=== PATIENT | male | born 1960 | race Caucasian/White ===

== ENCOUNTER 2017-02-24 10:50 | Outpatient (CLI) | payer OTHER ==
--- NOTE | 2017-02-24 15:01 | MRI Report ---
EXAM: MRI BRAIN AND ORBITS, WITHOUT CONTRAST EXAM DATE: 02/24/2017 12:15 PM. CLINICAL HISTORY: Disturbance, visual NOS, dizziness. Symptoms usually worse in the left. History of left-sided tonsillar cancer with chemoradiation in 2009. COMPARISON: None. TECHNIQUE: Multiplanar, multisequence T1-weighted and fluid-sensitive MR sequences of the brain were performed. Sequences optimized for routine and orbits evaluation. Other: None. IV Contrast: None. FINDINGS: Brain Volume: Normal for age. Parenchyma/Dura: No masses, infarcts, or hemorrhage. There are a few scattered punctate foci of FLAIR bright signal seen in the white matter of the cerebral hemispheres. This is not an unexpected findin g in a patient of age 56 years. No cortical signal abnormality. Ventricles/Cisterns: Normal. No hydrocephalus. Orbits: The globes, optic nerve sheath complex, extraocular muscles, and orbital fat are unremarkable . Sella turcica: The pituitary gland, cavernous sinuses, suprasellar cistern, and optic chiasm are unre markable. IAC: The internal auditory canals and cerebellopontine angle cisterns are symmetric and unremarkable. Vasculature: Normal signal flow void is seen in the major arterial structures at the skull base. Sinuses: Mild mucosal thickening is seen inferiorly in the right maxillary antrum. The mastoid air ce lls are clear. Bones: Normal. Other: None. IMPRESSION: 1. Negative noncontrast MRI of the brain. No acute abnormality. 2. Negative MRI of the orbits. 3. Mucosal thickening inferiorly in the right maxillary antrum. [facility] Referring Provider Line: [phone] SITE ID: [id number]
== END 2017-02-24 10:51 | disposition home or self-care (01) ==
LOC: DI 10:50
PROVIDERS: ATTEND Family Medicine
DX: H53.9 Unspecified visual disturbance (principal); R42 Dizziness and giddiness; C06.9 Malignant neoplasm of mouth, unspecified
CPT/HCPCS: 70551

== ENCOUNTER 2017-07-13 08:42 | Outpatient (CLI) | payer OTHER ==
[~2017-07-13 08:42] MED LIST: GADOBUTROL 10 MMOL/10 ML VIAL ONE
[2017-07-13] MEDS ORDERED: GADOBUTROL 10 MMOL/10 ML VIAL IVP ONE (09:31)
--- NOTE | 2017-07-13 10:39 | MRI Preliminary Report ---
Exam: MRI BRAIN W/WO Impression: 1. Normal MRI examination of the internal artery canals. In particular, no evidence of a vestibular s chwannoma. 2. A very mild amount of white matter disease is again identified in the supratentorial brain, unchan ged when compared to previous study 02/24/2017. 3. No new or acute intracranial pathology is demonstrated. SITE ID: [id number]
--- NOTE | 2017-07-13 11:58 | MRI Report ---
MRI BRAIN WITHOUT AND WITH CONTRAST EXAM DATE: 07/13/2017. INDICATION: 56-year-old male with history of oral cavity squamous cell carcinoma 7 years ago. The pat ient presents with three-week history of left-sided tinnitus, hearing loss and dizziness. Please asse ss. COMPARISON: 02/24/2017. TECHNIQUE: Imaging of the brain and internal auditory canals has been performed. The following sequences were ob tained: 1. T1 sagittal. 2. Axial T1 3-D, FLAIR and DWI. 3. 9 cc IV Gadavist. T1 3-D axial. Internal Auditory Canals: 1. Thin slice coronal fat-saturated T2. 2. Thin slice high-resolution, 3-D balanced FFE axial. 3. Thin slice postcontrast T1 fat-saturated axial. FINDINGS: INTERNAL AUDITORY CANALS On the balanced FFE axial sequence the vestibulocochlear nerve bundles are well seen in the CP angle cisterns and internal auditory canals bilaterally. No focal mass lesion is demonstrated. There appear to be normal fluid-filled spaces in the distribution of the cochlea, vestibules and semicircular can als bilaterally. The bone overlying the superior semicircular canals is very thin; however, no casper dehiscence of either superior semicircular canal is demonstrated (see series 602 and 603). No abnorma l enlargement of either endolymphatic duct/sac is demonstrated. Postcontrast sequence shows no evidence of an enhancing CP angle or internal auditory canal mass lesi on. In addition, no abnormal enhancement is seen in either labyrinth. BRAIN Ventricular size is normal and stable. A mild amount of white matter disease is again identified in t he supratentorial brain, essentially unchanged. Signal intensity of cortex and white matter is otherw ise normal. In particular, no focal brainstem lesion is demonstrated. There appear to be flow voids for the main intracranial arteries. No abnormal diffusion restriction i s demonstrated. No enhancing space-occupying mass lesion is identified. No pathologic meningeal or cranial nerve enha ncement is demonstrated. There appears to be normal intravascular contrast enhancement in the dural v enous sinuses and deep venous structures. This effectively excludes the possibility of venous thrombo sis. Marrow signal intensity in the regional skeletal structures is unremarkable. Very limited evaluation of the orbits reveals no gross pathology. The paranasal sinuses are essential ly clear. No mastoid or middle ear effusion is demonstrated. IMPRESSION: 1. Normal MRI examination of the internal auditory canals. In particular, no evidence of a vestibular schwannoma. 2. A very mild amount of white matter disease is again identified in the supratentorial brain, unchan ged when compared to previous study 02/24/2017. 3. No new or acute intracranial pathology is demonstrated. A preliminary report for this examination was called to Mable Forde PA-C, on 07/13/2017 at 10:35 a.m., as requested. Referring Provider Line: [phone] SITE ID: [id number]
== END 2017-07-13 08:43 | disposition home or self-care (01) ==
LOC: DI 08:42
PROVIDERS: ATTEND Physician Assistant Medical
DX: R90.82 White matter disease, unspecified (principal); H93.19 Tinnitus, unspecified ear; H91.90 Unspecified hearing loss, unspecified ear; R42 Dizziness and giddiness; C06.9 Malignant neoplasm of mouth, unspecified
CPT/HCPCS: 70553; A9585

== ENCOUNTER 2018-06-02 10:31 | Outpatient (CLI) | payer OTHER ==
[2018-06-02 10:58] LABS: BASOPHILS % (AUTO) 0.4 %; EOSINOPHILS # (AUTO) 0.1 10^3/uL (0.0-0.7); EOSINOPHILS % (AUTO) 1.8 %; HGB - HEMOGLOBIN 15.5 g/dL (14.0-18.0); LYMPHOCYTES # (AUTO) 1.8 10^3/uL (1.5-3.5); LYMPHOCYTES % (AUTO) 30.2 %; MEAN CORPUSCULAR HEMOGLOBIN 30.9 pg (27.0-31.0); MEAN CORPUSCULAR HGB CONC 34.3 g/dL (32.0-36.0); MEAN CORPUSCULAR VOLUME 90.2 fL (80.0-94.0); MEAN PLATELET VOLUME 7.9 fL (7.4-11.4); MONOCYTES # (AUTO) 0.4 10^3/uL (0.0-1.0); MONOCYTES % (AUTO) 7.5 %; NEUTROPHILS # (AUTO) 3.5 10^3/uL (1.5-6.6); NEUTROPHILS % (AUTO) 60.1 %; PLT - PLATELET COUNT 278 10^3/uL (130-450); RED CELL DISTRIBUTION WIDTH 12.9 % (12.0-15.0); WHITE BLOOD COUNT 5.8 x10^3/uL (4.8-10.8)
[2018-06-02 10:59] LABS: ALBUMIN 4.6 g/dL (3.2-5.5); ALBUMIN/GLOBULIN RATIO 1.5 (1.0-2.2); CALCIUM 9.4 mg/dL (8.5-10.3); TOTAL PROTEIN 7.6 g/dL (6.7-8.2)
== END 2018-06-02 10:32 | disposition home or self-care (01) ==
LOC: LAB 10:31
PROVIDERS: ATTEND Internal Medicine Gastroenterology
DX: I10 Essential (primary) hypertension (principal)
CPT/HCPCS: 36415; 80053; 85025

== ENCOUNTER 2018-06-02 10:47 | Outpatient (CLI) | payer OTHER | END 2018-06-02 10:48 | disposition home or self-care (01) | LOC: RT 10:47 | PROVIDERS: ATTEND Internal Medicine Gastroenterology | DX: I10 Essential (primary) hypertension (principal) | CPT/HCPCS: 36415; 80053; 85025; 93005 ==

== ENCOUNTER 2018-06-12 07:24 | Day surgery (SDC) | payer OTHER ==
[2018-06-12] MEDS ORDERED: ceFAZolin 2 GM/50 ML 2 GM/50 ML BAG IV ONE (07:36)
[2018-06-12] MEDS ORDERED: LACTATED RINGERS 1,000 ML IV ONE ×2 (08:05→12:06)
--- NOTE | 2018-06-12 08:20 | ANESTHESIA ---
Pre-Anesthesia VS, & Labs - Diagnosis Ventral incisional hernia - Procedure Ventral incisional hernia repair Vital Signs: Temp Pulse Resp BP Pulse Ox 36.4 C L 16 136/78 H 100 06/12/18 07:45 06/12/18 07:45 06/12/18 07:45 06/12/18 07:45 Height 5 ft 7 in Weight (kg) 89 kg Body Mass Index 34.1 - Lab Results Lab results reviewed: Yes Anes History & Medical History - Anesthetic History Anesthesia Complications: reports: No previous complications Family history of Anesthesia Complications: Denies Family history of Malignant Hyperthermia: Denies - Medical History Cardiovascular: reports: None Pulmonary: reports: None Gastrointestinal: reports: None Urinary: reports: None Neuro: reports: None Musculoskeletal: reports: None Endocrine/Autoimmune: reports: None Blood Disorders: reports: None Skin: reports: Other Smoking Status: Former smoker Psychosocial: reports: No issues indicated - Surgical History Eyes Ears Nose Throat (EENT): Other (Lefy radical neck) Neurologic: Radical neck Orthopedic: Other Exam General: Alert Dental: WNL Mouth Opening: Greater than 4 Fingerbreadths Neck Mobility: Normal Mallampati classification: I Thyromental Distance: greater than 6 cm Respiratory: Lungs clear Cardiovascular: Regular rate Neurological: Normal speech Mental/Cognitive Status: Alert/Oriented X3 Cognitive Status: Within normal limits Plan Anesthesia Type: MAC Consent for Procedure(s) Verified and Reviewed: Yes Code Status: Attempt Resuscitation ASA classification: 2-Mild systemic disease Is this case an emergency?: No
[2018-06-12] MEDS: LIDOCAINE MPF 1%-EPI 1:200000 30 ML VIAL ONE ×2 (10:52→10:58)
[2018-06-12] MEDS: BUPIVACAINE 0.5% PF 30 ML VIAL ONE ×2 (10:52→10:58)
[2018-06-12] MEDS ORDERED: ceFAZolin 1 GM VIAL IR ONE (11:08)
[2018-06-12] MEDS ORDERED: fentaNYL 100 MCG/2 ML VIAL IVP ONE (11:55)
[2018-06-12] MEDS ORDERED: MIDAZOLAM 2 MG/2 ML VIAL IVP ONE (11:55)
[2018-06-12] MEDS ORDERED: KETOROLAC 30 MG/ML VIAL IVP ONE (11:55)
[2018-06-12] MEDS ORDERED: PROPOFOL 200 MG/20 ML VIAL IVP ONE (11:55)
[2018-06-12] MEDS ORDERED: oxyCOD/ACETAMIN 5 MG/325 MG TABLET PO ONE (12:53)
[2018-06-12 13:32] VITALS: BP 144/80
--- NOTE | 2018-06-12 23:45 | OPERATIVE REPORT ---
DATE OF SERVICE: 06/12/2018 Physician: Milton Church MD PREOPERATIVE DIAGNOSIS: Symptomatic incarcerated ventral incisional hernia. POSTOPERATIVE DIAGNOSIS: Symptomatic incarcerated ventral incisional hernia. PROCEDURE: Open repair of symptomatic incarcerated ventral incisional hernia with Ventralex soft tis abhi patch. ANESTHESIA: Local plus monitored anesthesia care by Monroe Ribeiro CRNA. SURGEON: Milton Church MD. ESTIMATED BLOOD LOSS: 5 mL. COMPLICATIONS: None. FINDINGS: A multi-fenestrated ventral incisional hernia was present in the upper midline measuring a pproximately 3-4 cm in greatest diameter and comprised of preperitoneal fat herniating through the mu ltiple fascial defects. There was no evidence of strangulation. A 6.4 cm Ventralex soft tissue patc h was used for the reconstruction, placed in a preperitoneal position. INDICATIONS: Patient is a 57-year-old gentleman with a history of an open gastrostomy tube placement procedure performed via a mini laparotomy in the epigastrium, approximately 8 years ago. Over the p ast several years, he has noted progressively enlarging bulge in the mid epigastrium. Examination re vealed a partially reducible ventral incisional hernia, and he was advised to undergo repair. TECHNIQUE: After informed consent, patient was taken to the operating room where he was sedated and monitored. Preoperative preparation included application of sequential calf compression boots, admin istration of 2 grams cefazolin intravenously within an hour of the incision. His abdomen was prepare d with iodoform solution, following which a field block was instituted using a 50:50 combination of 1 % lidocaine with epinephrine and 0.5% Marcaine plain; a total of 30 mL of the mixture was used. The abdomen was then re-prepared with ChloraPrep solution and draped in the usual sterile fashion. Travis brooks's previous upper midline incision was reopened for a total distance of approximately 4-5 cm. Hemo stasis was achieved with electrocautery. The incision was carried down through the subcutaneous tiss ue until the hernia sacs were identified. The fascial edges were mobilized circumferentially. Herni a contents were seen to be preperitoneal fat. The fascial bridges between the fenestrations were leelee ed to create a single common fascial defect of approximately 3-4 cm in length. The fascial edges wer e mobilized circumferentially, approximately 2-3 cm circumferentially ,creating a preperitoneal pocke t of sufficient size to allow placement of the 6.4 cm Ventralex patch without folding. After hemosta sis was assured, the wound was irrigated with antibiotic solution. The patch, which had been soaked in antibiotic solution, was placed in the preperitoneal position and with the straps holding it again st the anterior abdominal wall. The fascial edges were reapproximated transversely with interrupted 0 braided polyester sutures, the central sutures of which incorporated the straps to secure the mesh in place. Excess strap was excised and discarded. After fascial reapproximation occurred, overlying the mesh, the wound was again irrigated with antibi otic solution, following which wound closure was accomplished in layers using continuous 2-0 Vicryl t o reapproximate subcutaneous tissues and 4-0 Monocryl subcuticular skin closure, followed by Dermabon d. The procedure was terminated, and patient transferred out of the operating room in satisfactory c ondition. Sponge, needle counts were correct x2, and no drains were used. cc: Chris Kelley M.D. TD: 06/12/2018 12:10
== END 2018-06-12 07:25 | disposition home or self-care (01) ==
LOC: SDS 07:24
PROVIDERS: ATTEND Internal Medicine Gastroenterology
PROC: 0WQF0ZZ Repair Abdominal Wall, Open Approach (ICD-10-PCS; principal; 2018-06-12 08:45)
DX: K43.2 Incisional hernia without obstruction or gangrene (principal); I10 Essential (primary) hypertension; E78.5 Hyperlipidemia, unspecified; Z87.891 Personal history of nicotine dependence
CPT/HCPCS: 49560; A9270; C1781; J0690; J7120

== ENCOUNTER 2019-01-08 17:52 | Emergency (ER) | payer OTHER ==
[2019-01-08] MEDS ORDERED: TETANUS/DIPHTHERIA/PERTUSSIS 0.5 ML SYRINGE IM ONE (18:38)
--- NOTE | 2019-01-08 18:42 | ED Physician Documentation ---
PD HPI LOWER EXT INJURY - Stated complaint Stated Complaint: L KNEE LAC - Chief complaint Chief Complaint: Laceration - History obtained from History obtained from: Patient - History of Present Illness PD HPI LOW EXT INJURY LOCATION: Left, Knee Type of injury: Laceration (He was using a trimmer sorter at home and cut his left knee accidentally. He is not up-to-date on tetanus.) Review of Systems Constitutional: reports: Reviewed and negative Cardiac: reports: Reviewed and negative Respiratory: reports: Reviewed and negative PD PAST MEDICAL HISTORY - Past Medical History Past Medical History: Yes Cardiovascular: None Respiratory: None Neuro: None Endocrine/Autoimmune: None GI: None : None HEENT: None Psych: None Musculoskeletal: None Derm: Other Other Past Medical History: cancer of neck and tonsil in 2010 with chemo and radiation. cancer free in 2019. - Past Surgical History Past Surgical History: Yes Ortho: Other Neuro: Radical neck HEENT: Other - Present Medications Home Medications: Ambulatory Orders Medication Instructions Recorded Confirmed No Known Home Medications 01/08/19 01/08/19 - Allergies Allergies/Adverse Reactions: Allergies Allergy/AdvReac Type Severity Reaction Status Date / Time No Known Drug Allergies Allergy Verified 01/08/19 17:58 - Social History Does the pt smoke?: Yes Smoking Status: Former smoker Does the pt drink ETOH?: No Does the pt have substance abuse?: No - Immunizations Immunizations: TDAP >10years/unknown PD ED PE NORMAL - Vitals Vital signs reviewed: Yes - General General: Alert and oriented X 3, No acute distress - Extremities Extremities: Other (Stellate 3 cm laceration just superior to the left patella with intact patellar tendon strength.) - Neuro Neuro: Alert and oriented X 3, Normal speech Results - Vitals Vitals: Vital Signs - 24 hr 01/08/19 17:56 Temperature 36.8 C Heart Rate 73 Respiratory 20 Rate Blood Pressure 153/97 H O2 Saturation 98 Procedures - Laceration (location) L knee Length in cm: 2 Wound type: Stellate, Superficial, Into subcut fat Neurovascular status: Sensory intact, Motor intact, Vascular intact Anesthesia: Lidocaine 1% with epi Wound Preparation: Hibiclens, Irrigated copiously NS Skin layer closure: Nylon, Size #-0 - enter number (4-0), Sutures - enter # (5 with one dog-leg subq at a corner) Other: Tetanus booster given Complexity: Simple Departure - Departure Disposition: Home, Self Care Clinical Impression: Laceration Condition: Good Record reviewed to determine appropriate education?: Yes Instructions: ED Laceration Ext Sutr Stap Tape Comments: Watch for redness, swelling, drainage fever or increased pain Followup with your doctor in about 2 weeks for suture removal./
[2019-01-08] MEDS ORDERED: BACITRACIN OINT TOP ONE (19:25)
[2019-01-08] MEDS ORDERED: BACITRACIN OINT TOP STA (19:25)
[2019-01-08 19:27] VITALS: BP 146/66
== END 2019-01-08 19:27 | disposition home or self-care (01) ==
LOC: ED 17:52
DX: S81.012A Laceration without foreign body, left knee, initial encounter (principal); W29.3XXA Contact with powered garden and outdoor hand tools and machinery, initial encounter; Z87.891 Personal history of nicotine dependence
CPT/HCPCS: 12001; 90471; 90715; 99282; 99283; A9270

== ENCOUNTER 2019-02-12 12:03 | Emergency (ER) | payer OTHER ==
--- NOTE | 2019-02-12 12:25 | ED Physician Documentation ---
PD HPI FOCAL NEURO - Stated complaint Stated Complaint: DIZZY - Chief complaint Chief Complaint: Neuro - History obtained from History obtained from: Patient, Family () - History of Present Illness Timing - onset: Other (58-year-old gentleman who in the past has had mild recurrent vertigo that is fleeting. 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 For the last 2 days he has had disequilibrium that is both more severe and different in quality than his prior vertigo. It is not a spinning sensation. He just feels off balance. He did fall today but did not injure himself, this was because of this. He denies a headache or nausea. He has difficulty focusing on things and describes fluttering in his vision. He denies weakness, numbness, tingling in the extremities or face.) Review of Systems Ten Systems: 10 systems reviewed and negative Constitutional: denies: Fever, Chills Ears: denies: Loss of hearing, Ear pain, Drainage/discharge Nose: denies: Rhinorrhea / runny nose Throat: denies: Sore throat Cardiac: reports: Reviewed and negative Respiratory: reports: Reviewed and negative PD PAST MEDICAL HISTORY - Past Medical History Cardiovascular: None Respiratory: None Neuro: None Endocrine/Autoimmune: None GI: None : None HEENT: None Psych: None Musculoskeletal: None Derm: Other - Past Surgical History Past Surgical History: Yes Ortho: Other Neuro: Radical neck HEENT: Other - Present Medications Home Medications: Ambulatory Orders Medication Instructions Recorded Confirmed Meclizine HCl 25 mg PO Q6H PRN #20 tab.chew 02/12/19 - Allergies Allergies/Adverse Reactions: Allergies Allergy/AdvReac Type Severity Reaction Status Date / Time No Known Drug Allergies Allergy Verified 02/12/19 12:13 - Social History Does the pt smoke?: Yes Smoking Status: Former smoker Does the pt drink ETOH?: No Does the pt have substance abuse?: No - Family History Family history: reports: Non contributory - Immunizations Immunizations: TDAP >10years/unknown PD ED PE NORMAL - Vitals Vital signs reviewed: Yes - General General: Alert and oriented X 3, No acute distress - HEENT HEENT: PERRL, EOMI, Other (Very mild fast nystagmus on rightward gaze, the soft palate is deformed because of his prior surgery and he has surgical scars over the left neck.) - Neck Neck: Supple, no meningeal sign, No bony TTP - Cardiac Cardiac: RRR, No murmur - Respiratory Respiratory: No respiratory distress, Clear bilaterally - Abdomen Abdomen: Soft, Non tender - Back Back: No CVA TTP, No spinal TTP - Derm Derm: Normal color, Warm and dry - Neuro Neuro: Alert and oriented X 3, contracts director 2-12 intact, Other (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 Some ataxia on [id number] testing. This is on the left.) Eye Opening: Spontaneous Motor: Obeys Commands Verbal: Oriented GCS Score: 15 NIHSS - Time Time: 12:20 - Level of Consciousness Level of consciousness: (0) Alert, Keenly responsive LOC Questions: (0) Answers both Q's correct LOC Commands: (0) Performs both correctly - Gaze Best Gaze: (0) Normal - Visual Visual: (0) No loss - Facial Palsy Facial Palsy: (0) Normal, symmetrical movement - Motor Arms (both separate) Motor Arm (right): (0) No drift Motor Arm (left): (0) No drift - Motor Legs (both separate) Motor Leg (right): (0) No drift Motor Leg (left): (0) No drift - Limb Ataxia Limb Ataxia: (1) Present in 1 limb - Sensory Sensory: (0) Normal - Best Language Best Language: (0) No aphasia - Dysarthria Dysarthria: (0) Normal - Extinction and Inattention (formally neg Extinction and inattention: (0) No abnormality - Total Score/Results Total Score/Result: 1 Results - Vitals Vitals: Vital Signs - 24 hr 02/12/19 02/12/19 02/12/19 12:09 13:04 14:46 Temperature 36.1 C L Heart Rate 64 67 68 Respiratory 18 20 16 Rate Blood Pressure 142/91 H 126/87 H 131/93 H O2 Saturation 98 97 100 Oxygen O2 Source Room air - Labs Labs: Laboratory Tests 02/12/19 02/12/19 12:31 12:31 WBC 11.5 H RBC 5.02 Hgb 15.1 Hct 45.2 MCV 90.0 MCH 30.0 MCHC 33.3 RDW 12.6 Plt Count 290 MPV 8.1 Neut # (Auto) 9.1 H Lymph # (Auto) 1.6 [place]atahoula # (Auto) 0.7 Eos # (Auto) 0.1 Baso # (Auto) 0.1 Absolute Nucleated RBC 0.00 Nucleated RBC % 0.0 Sodium 139 Potassium 4.1 Chloride 102 Carbon Dioxide 29 Anion Gap 8.0 BUN 16 Creatinine 0.9 Estimated GFR (MDRD) 87 L Glucose 115 H Calcium 9.8 Total Bilirubin 1.1 H AST 32 ALT 32 Alkaline Phosphatase 93 Total Protein 7.9 Albumin 4.5 Globulin 3.4 Albumin/Globulin Ratio 1.3 Lipase 27 - Rads (name of study) MRI Brain Radiology: EMP read contemporaneously (nad, WHITE MATTER DZ) PD MEDICAL DECISION MAKING - ED course ED course: 58-year-old gentleman presents with a history of vertigo but now more of a disequilibrium for the last 2 days which is much more constant and debilitating than his prior vertigo. There is subtle ataxia on the left and therefore an MRI was done showing white matter disease but no other acute findings. He was given a copy of his MRI on CD to follow-up with ENT and neurology. Departure - Departure Disposition: 01 Home, Self Care Clinical Impression: Vertigo, Ataxia Condition: Good Record reviewed to determine appropriate education?: Yes Instructions: ED Dizziness UKO Prescriptions: Meclizine HCl 25 mg PO Q6H PRN #20 tab.chew PRN Reason: Dizziness Comments: As discussed your MRI shows some nonspecific subcortical, deep, and periventricular white matter hyperintensities on T2 FLAIR images. Greater than number thenIn number than expected for your age. The possibilities include migraines, small vessel ischemic disease versus a demyelinating process. For this I would recommend following up with the neurologist whom you saw before, Jovani tracy MD, , call his office for an appointment. Take the copy of the MRI with you. Also this may be due to an inner ear problem. You can try the maneuvers as discussed, "James maneuver." Should follow-up with an ear nose and throat doctor, the closest is in [place], the phone number is [phone].
[2019-02-12 12:53] LABS: BASOPHILS # (AUTO) 0.1 10^3/uL (0.0-0.1); BASOPHILS % (AUTO) 0.8 %; EOSINOPHILS # (AUTO) 0.1 10^3/uL (0.0-0.7); EOSINOPHILS % (AUTO) 0.9 %; HGB - HEMOGLOBIN 15.1 g/dL (14.0-18.0); LYMPHOCYTES # (AUTO) 1.6 10^3/uL (1.5-3.5); LYMPHOCYTES % (AUTO) 13.6 %; MEAN CORPUSCULAR HGB CONC 33.3 g/dL (32.0-36.0); MEAN PLATELET VOLUME 8.1 fL (7.4-11.4); MONOCYTES # (AUTO) 0.7 10^3/uL (0.0-1.0); MONOCYTES % (AUTO) 5.7 %; NEUTROPHILS # (AUTO) 9.1 10^3/uL (1.5-6.6); PLT - PLATELET COUNT 290 10^3/uL (130-450); RED BLOOD COUNT 5.02 10^6/uL (4.70-6.10); RED CELL DISTRIBUTION WIDTH 12.6 % (12.0-15.0); WHITE BLOOD COUNT 11.5 x10^3/uL (4.8-10.8)
[2019-02-12] MEDS ORDERED: diazePAM 5 MG TABLET PO STA (13:02)
[2019-02-12 13:04] LABS: ALBUMIN 4.5 g/dL (3.2-5.5); ALBUMIN/GLOBULIN RATIO 1.3 (1.0-2.2); BILIRUBIN,TOTAL 1.1 mg/dL (0.2-1.0); CALCIUM 9.8 mg/dL (8.5-10.3); CREATININE 0.9 mg/dL (0.6-1.2); TOTAL PROTEIN 7.9 g/dL (6.7-8.2)
--- NOTE | 2019-02-12 16:06 | MRI Report ---
Reason: dysequilibium with left ataxia Procedure Date: 02/12/2019 Accession Number: [id number] / [id number] Procedure: MRI - Brain W/O CPT Code: FULL RESULT: EXAM: MRI BRAIN WITHOUT CONTRAST EXAM DATE: 02/12/2019 03:35 PM. CLINICAL HISTORY: Dysequilibium with left ataxia. COMPARISON: BRAIN W/O 02/24/2017 11:15 AM BRAIN W/WO 07/13/2017 9:00 AM. TECHNIQUE: Multiplanar, multisequence T1-weighted and fluid-sensitive MR sequences of the brain were performed. Sequences optimized for routine evaluation. Other: None. IV Contrast: None. FINDINGS: The diffusion-weighted images are normal. There is no evidence of acute or subacute cerebral infarction. The axial FLAIR images demonstrate multiple punctate nonspecific T2 hyperintensities within the subcortical, deep, and periventricular white matter. These are greater in number than expected for a patient of this age. The differential diagnosis would include migraine versus premature onset of chronic small vessel ischemia versus a demyelinating process. There is no significant generalized volume loss. The T2* sequence is normal. There is no evidence of subacute or chronic hemorrhage. The corpus callosum is of normal size and configuration. The pituitary and sella are normal. The craniocervical junction is normal. The imaged portions of the paranasal sinuses are normally aerated. The bilateral parotid spaces exhibit normal signal intensity. The optic nerves demonstrate symmetric signal intensity and size. The cerebral vascular flow voids are patent. IMPRESSION: 1. There is no evidence of acute or subacute cerebral infarction. 2. The axial FLAIR images demonstrate multiple punctate nonspecific T2 hyperintensities within the subcortical, deep, and periventricular white matter. These are greater in number than expected for a patient of this age. The differential diagnosis would include migraine versus premature onset of chronic small vessel ischemia versus a demyelinating process. 3. There is no evidence of brain mass.
[2019-02-12 16:13] VITALS: BP 124/95
== END 2019-02-12 16:54 | disposition home or self-care (01) ==
LOC: ED 12:03
DX: R42 Dizziness and giddiness (principal); R27.0 Ataxia, unspecified; R90.89 Other abnormal findings on diagnostic imaging of central nervous system; Z85.818 Personal history of malignant neoplasm of other sites of lip, oral cavity, and pharynx; Z87.891 Personal history of nicotine dependence
CPT/HCPCS: 36415; 70551; 80053; 83690; 85025; 99283; A9270

== ENCOUNTER 2019-12-25 08:00 | Outpatient (CLI) | payer OTHER ==
[2019-12-25 16:59] LABS: BASOPHILS # (AUTO) 0.1 10^3/uL (0.0-0.1); BASOPHILS % (AUTO) 0.9 %; EOSINOPHILS # (AUTO) 0.2 10^3/uL (0.0-0.7); EOSINOPHILS % (AUTO) 2.6 %; HGB - HEMOGLOBIN 15.1 g/dL (14.0-18.0); LYMPHOCYTES # (AUTO) 2.1 10^3/uL (1.5-3.5); LYMPHOCYTES % (AUTO) 30.4 %; MEAN CORPUSCULAR HEMOGLOBIN 30.4 pg (27.0-31.0); MEAN CORPUSCULAR HGB CONC 32.3 g/dL (32.0-36.0); MEAN CORPUSCULAR VOLUME 94.2 fL (80.0-94.0); MEAN PLATELET VOLUME 10.3 fL (7.4-11.4); MONOCYTES # (AUTO) 0.6 10^3/uL (0.0-1.0); MONOCYTES % (AUTO) 8.4 %; NEUTROPHILS % (AUTO) 57.4 %; PLT - PLATELET COUNT 289 10^3/uL (130-450); RED BLOOD COUNT 4.96 10^6/uL (4.70-6.10); RED CELL DISTRIBUTION WIDTH 12.4 % (12.0-15.0); WHITE BLOOD COUNT 6.9 x10^3/uL (4.8-10.8)
[2019-12-25 17:16] LABS: ALBUMIN 4.3 g/dL (3.2-5.5); ALBUMIN/GLOBULIN RATIO 1.5 (1.0-2.2); BILIRUBIN,TOTAL 0.9 mg/dL (0.2-1.0); CALCIUM 9.5 mg/dL (8.5-10.3); CREATININE 0.9 mg/dL (0.6-1.2); TOTAL PROTEIN 7.1 g/dL (6.7-8.2)
== END 2019-12-25 23:59 | disposition home or self-care (01) ==
LOC: LAB.WCP 08:00
PROVIDERS: ATTEND Family Medicine
DX: C09.9 Malignant neoplasm of tonsil, unspecified (principal)
CPT/HCPCS: 36415; 80053; 85025